=== PATIENT | male | born 1960 | race Caucasian/White ===

== ENCOUNTER → 2020-12-20 | Outpatient (CLI) | payer OTHER | LOC: CT 11:18 | DX: C34.12 Malignant neoplasm of upper lobe, left bronchus or lung (principal); R91.1 Solitary pulmonary nodule; Z90.411 Acquired partial absence of pancreas; D73.89 Other diseases of spleen; Z90.2 Acquired absence of lung [part of]; Z98.890 Other specified postprocedural states | CPT/HCPCS: 36415; 71260; 82565; Q9967 ==

== ENCOUNTER → 2021-02-12 | Outpatient (CLI) | payer OTHER | LOC: HEART 5 08:37 | DX: Z01.811 Encounter for preprocedural respiratory examination (principal); Z72.0 Tobacco use | CPT/HCPCS: 94010 ==

== ENCOUNTER → 2021-03-17 | Outpatient (CLI) | payer OTHER | LOC: EXRD 08:43 | DX: Z00.01 Encounter for general adult medical examination with abnormal findings (principal); R91.8 Other nonspecific abnormal finding of lung field | CPT/HCPCS: 71046 ==

== ENCOUNTER → 2021-06-10 | Outpatient (CLI) | payer OTHER | LOC: RAD 12:10 | DX: R06.02 Shortness of breath (principal); J90 Pleural effusion, not elsewhere classified | CPT/HCPCS: 71046 ==

== ENCOUNTER → 2021-06-12 | Outpatient (CLI) | payer OTHER | LOC: US 09:00 | DX: J90 Pleural effusion, not elsewhere classified (principal) | CPT/HCPCS: 71045; 71046 ==

== ENCOUNTER → 2021-06-17 | Outpatient (CLI) | payer OTHER | LOC: KOH-I 15:51 | DX: J90 Pleural effusion, not elsewhere classified (principal); R05.9 Cough, unspecified; R06.02 Shortness of breath; R93.89 Abnormal findings on diagnostic imaging of other specified body structures; J94.2 Hemothorax; R91.8 Other nonspecific abnormal finding of lung field | CPT/HCPCS: 71046 ==